=== PATIENT | female | born 1990 | race African-American/Black ===

== ENCOUNTER 2020-04-10 16:41 | Emergency (ER) | payer MEDICAID, OTHER ==
[~2020-04-10] VITALS: Ht 157.5 cm; Wt 68.0 kg
[2020-04-10 17:45] LABS: CLARITY URINE CLOUDY (CLEAR); COLOR URINE YELLOW (YELLOW); KETONES URINE NEGATIVE (NEGATIVE); LEUKOCYTE ESTERASE URINE 3+ (NEGATIVE); NITRITE URINE POSITIVE (NEGATIVE); OCCULT BLOOD URINE 2+ (NEGATIVE); PH URINE 6.5 (4.5-8.0); PROTEIN URINE 2+ (NEGATIVE); SPECIFIC GRAVITY URINE 1.017 (1.005-1.030)
[2020-04-10] MEDS: ACETAMINOPHEN 325MG TABLET PO PRN ×2 (17:45→18:47)
[2020-04-10 17:56] LABS: BASOPHILS % 0.5 % (0.0-2.0); CHLORIDE 107 mEq/L (98-107); HEMATOCRIT. 39.8 % (36.0-48.0); HEMOGLOBIN. 13.2 g/dL (12.0-16.0); LYMPHOCYTES % 37.3 % (20.0-50.0); MEAN CORPUSCULAR HEMOGLOBIN 29.1 pg (28.0-32.0); MEAN CORPUSCULAR VOLUME 87.7 fL (81.0-99.0); MEAN PLATELET VOLUME 7.9 fl (7.4-10.4); MONOCYTES % 8.4 % (2.0-8.0); NEUTROPHILS % 51.8 % (40.0-76.0); PLATELET 231 x1000/uL (130-400); RED BLOOD CELL COUNT 4.54 mill/uL (4.2-5.4); RED CELL DISTRIBUTION WIDTH 13.3 % (11.6-14.6)
[2020-04-10 18:06] LABS: B-HCG QUANTITATIVE < 1 mIU/mL (<3)
[2020-04-10 20:39] VITALS: BP 139/90
== END 2020-04-10 20:41 | disposition home or self-care (01) ==
LOC: ER 16:41
DX: N39.0 Urinary tract infection, site not specified (principal)
CPT/HCPCS: 36415; 76830; 76856; 80053; 81003; 81025; 84702; 85025; 86850; 86900; 87077; 87186; 99284

== ENCOUNTER 2025-01-15 07:44 | Emergency (ER) | payer MEDICAID ==
[~2025-01-15] VITALS: Ht 170.2 cm; Wt 81.0 kg
[~2025-01-15 07:44] MED LIST: FAMO-135 MT; LEVO-65 MT
[2025-01-15 07:47] VITALS: O2SAT 99
[2025-01-15] MEDS: SODIUM CHLORIDE 0.9% 1,000 ML IV ONE (08:16)
[2025-01-15] MEDS: ONDANSETRON HCL 4MG/2ML INJ IV STA (08:19)
[2025-01-15] MEDS: FAMOTIDINE 20MG/2ML VIAL IV STA (08:24)
[2025-01-15] MEDS: MAGNESIUM/ALUMINUM HYDROXIDE/SIMETHICONE 30ML UDC PO STA (08:24)
[2025-01-15 08:29] LABS: CHLORIDE 108 mEq/L (98-107); POTASSIUM 3.7 mEq/L (3.5-5.1); SODIUM 143 mEq/L (136-145)
[2025-01-15 08:30] LABS: CALCIUM 9.4 mg/dL (8.7-10.4); CARBON DIOXIDE 25 mEq/L (21-32)
[2025-01-15 08:33] LABS: BASOPHILS % 0.5 % (0.0-2.0); HEMATOCRIT. 43.7 % (36.0-48.0); HEMOGLOBIN. 14.3 g/dL (12.0-16.0); LYMPHOCYTES % 29.9 % (20.0-50.0); MEAN CORPUSCULAR HEMOGLOBIN 30.5 pg (28.0-32.0); MEAN CORPUSCULAR HGB CONC 32.7 g/dL (31.0-37.0); MEAN CORPUSCULAR VOLUME 93.3 fL (81.0-99.0); MONOCYTES % 5.1 % (2.0-8.0); NEUTROPHILS % 62.5 % (40.0-76.0); PLATELET 248 x1000/uL (130-400); RED BLOOD CELL COUNT 4.69 mill/uL (4.2-5.4); RED CELL DISTRIBUTION WIDTH 13.6 % (11.6-14.6); WHITE BLOOD COUNT 8.3 x1000/uL (4.5-11.0)
[2025-01-15 08:35] LABS: GLUCOSE 102 mg/dL (70-105); UREA NITROGEN BLOOD 12 mg/dL (9-23)
[2025-01-15 08:37] LABS: ALANINE AMINOTRANSFERASE 13 IU/L (10-49); ALBUMIN 4.4 g/dL (3.2-4.8); ASPARTATE AMINOTRANSFERASE 20 IU/L (<34)
[2025-01-15 08:38] LABS: BILIRUBIN DIRECT 0.1 mg/dL (<=3.0); BILIRUBIN TOTAL 0.5 mg/dL (0.1-1.0); PROTEIN TOTAL 7.8 g/dL (6.0-8.3)
[2025-01-15 09:25] LABS: CLARITY URINE TURBID (CLEAR); COLOR URINE YELLOW (YELLOW); GLUCOSE URINE NEGATIVE (NEGATIVE); KETONES URINE NEGATIVE (NEGATIVE); LEUKOCYTE ESTERASE URINE 1+ (NEGATIVE); NITRITE URINE NEGATIVE (NEGATIVE); OCCULT BLOOD URINE TRACE (NEGATIVE); PH URINE 8.5 (4.5-8.0); PROTEIN URINE 1+ (NEGATIVE); SPECIFIC GRAVITY URINE 1.021 (1.005-1.030); UROBILINOGEN URINE 0.2 E.U./dL (0.2-1.0)
[2025-01-15 09:32] LABS: HCG SCREEN NEGATIVE
[2025-01-15 09:47] LABS: BACTERIA URINE 4+; SQUAMOUS EPITHELIAL CELL URINE 3+ /lpf (RARE/1+); TRICHOMONAS URINE FEW; YEAST URINE NONE SEEN
[2025-01-15 10:00] VITALS: BP 121/45; PULSE 53; RESP 17; TEMP 37; O2SAT 99
[2025-01-15] MEDS: CEFTRIAXONE 1GM/50ML 50 ML IV ONE (12:15)
[2025-01-15] MEDS ORDERED: CEFP200T13 MT (13:13)
== END 2025-01-15 14:03 | disposition home or self-care (01) ==
LOC: ER 07:44
DX: N39.0 Urinary tract infection, site not specified (principal); F10.90 Alcohol use, unspecified, uncomplicated; F12.10 Cannabis abuse, uncomplicated; Z88.5 Allergy status to narcotic agent; Z79.899 Other long term (current) drug therapy; Y90.9 Presence of alcohol in blood, level not specified
CPT/HCPCS: 80076; 80048; 81003; 84703; 83690; 85025; 87086; 36415; 74176; 96361; 96365; 99285; J0696; J3490; J7030; Z7610 ×2; A4606

== ENCOUNTER 2025-03-02 07:49 | Emergency (ER) | payer MEDICAID ==
[~2025-03-02] VITALS: Ht 167.6 cm; Wt 70.0 kg
[~2025-03-02 07:49] MED LIST changes: +CEFP200T13 MT
[2025-03-02 07:50] VITALS: O2SAT 99
[2025-03-02] MEDS: ONDANSETRON HCL 4MG/2ML INJ IV ONE (08:23)
[2025-03-02] MEDS: LACTATED RINGERS 1,000 ML IV SCH (08:23)
[2025-03-02] MEDS: ACETAMINOPHEN 1000MG/100ML 100 ML IV ONE (08:26)
[2025-03-02 08:28] LABS: BASOPHILS % 0.4 % (0.0-2.0); EOSINOPHILS % 1.1 % (0.0-5.0); HEMATOCRIT. 44.4 % (36.0-48.0); HEMOGLOBIN. 14.1 g/dL (12.0-16.0); LYMPHOCYTES % 12.7 % (20.0-50.0); MEAN CORPUSCULAR HGB CONC 31.9 g/dL (31.0-37.0); MEAN PLATELET VOLUME 8.3 fl (7.4-10.4); MONOCYTES % 4.9 % (2.0-8.0); NEUTROPHILS % 80.9 % (40.0-76.0); PLATELET 242 x1000/uL (130-400); RED BLOOD CELL COUNT 4.72 mill/uL (4.2-5.4); RED CELL DISTRIBUTION WIDTH 13.9 % (11.6-14.6); WHITE BLOOD COUNT 8.4 x1000/uL (4.5-11.0)
[2025-03-02 08:41] LABS: HCG SCREEN NEGATIVE
[2025-03-02 08:46] LABS: CHLORIDE 106 mEq/L (98-107); POTASSIUM 4.5 mEq/L (3.5-5.1); SODIUM 141 mEq/L (136-145)
[2025-03-02 08:47] LABS: CALCIUM 9.9 mg/dL (8.7-10.4); CARBON DIOXIDE 24 mEq/L (21-32)
[2025-03-02 08:52] LABS: CREATININE 0.9 mg/dL (0.6-1.0); GLUCOSE 94 mg/dL (70-105); UREA NITROGEN BLOOD 8 mg/dL (9-23)
[2025-03-02 08:54] LABS: ALANINE AMINOTRANSFERASE 15 IU/L (10-49); ALBUMIN 4.5 g/dL (3.2-4.8); ASPARTATE AMINOTRANSFERASE 27 IU/L (<34); BILIRUBIN DIRECT 0.1 mg/dL (<=3.0); BILIRUBIN TOTAL 0.6 mg/dL (0.1-1.0); PROTEIN TOTAL 7.8 g/dL (6.0-8.3)
[2025-03-02] MEDS ORDERED: KETO10TA2 MT (11:55)
[2025-03-02] MEDS ORDERED: AMOX1TAB16 MT (11:55)
[2025-03-02] MEDS ORDERED: ONDA-239 PO (11:55)
[2025-03-02 12:10] VITALS: BP 121/72; PULSE 65; RESP 12; TEMP 36.7; O2SAT 100
== END 2025-03-02 12:29 | disposition home or self-care (01) ==
LOC: ER 07:49
DX: R10.9 Unspecified abdominal pain (principal); K52.9 Noninfective gastroenteritis and colitis, unspecified; F10.90 Alcohol use, unspecified, uncomplicated; F12.90 Cannabis use, unspecified, uncomplicated; Z88.5 Allergy status to narcotic agent; Y90.9 Presence of alcohol in blood, level not specified
CPT/HCPCS: 36415; 74176; 80048; 80076; 84703; 85025; 86850; 86900; 96360; 96361; 99285; J2405; J0131